=== PATIENT | female | born 1980 | race American Indian/Alaskan Native ===

== ENCOUNTER → 2024-10-27 | Outpatient (CLI) | payer OTHER ==
[~2024-10-27] MED LIST: CIPR500 PO; DOCU100 PO; DULO30 PO; EFFEXOR XR150 MG PO; EUTHYROX150 MC1 PO; FLUO10 PO; IBUP800 PO; LEVOTHYROXINE150 MC9 PO; LEVSOD137; LEVSOD137 PO; METR500 PO; NUVA RING; Norco 5-325 Ta1 EACH PO; Nuvaring Vagin1 EACH VG; ONDA4ODT MM; POLYETHYLENE G500 G1 PO; PROM25 PO; VISBIOME 112.51 EACH PO
[2024-10-27 17:12] LABS: U Amphetamine Screen Not Detected; U Barbituate Screen Not Detected; U Benzodiazapine Screen Not Detected; U Buprenorphine Screen Not Detected; U Cannabinoids Screen Not Detected; U Cocaine Screen Not Detected; U Methadone Screen Not Detected; U Methamphetamine Screen Not Detected; U Opiates Screen Not Detected; U Oxycodone Screen Not Detected; U Phencyclidine Screen Not Detected
== END ==
LOC: LAB 15:14 → LAB SHORT 15:14
PROVIDERS: Internal Medicine Critical Care Medicine
DX: R40.0 Somnolence (principal)